=== PATIENT | male | born 1945 | race Caucasian/White ===

== ENCOUNTER 2022-05-02 13:20 | Outpatient (CLI) | payer OTHER, SELFPAY | END 2022-05-02 13:21 | disposition home or self-care (01) | LOC: RAD 13:24 | DX: I25.10 Atherosclerotic heart disease of native coronary artery without angina pectoris (principal); I51.7 Cardiomegaly; I34.0 Nonrheumatic mitral (valve) insufficiency | CPT/HCPCS: 93306 ==